=== PATIENT | male | born 1955 | race Caucasian/White ===

== ENCOUNTER → 2019-03-31 | Outpatient (CLI) | payer MEDICARE ==
[~2019-03-31] MED LIST: ACHD5005 PO; BENA40TA5 PO; DOCU-143 PO; HYDR-4196 PO; METO-352 PO; TRIA1TAB3 PO
--- NOTE | 2019-03-31 10:57 | Diagnostic Imaging Report ---
INDICATION: Pain. 2 views were obtained. FINDINGS: The alignment is normal. There are mild degenerative changes. There is particular involvement of the distal interphalangeal joints. There is no fracture or dislocation. Soft tissues grossly unremarkable. IMPRESSION: Degenerative changes particularly the DIP joints. Dictated by: Dictated on workstation # [id number]
== END ==
LOC: RAD 10:30
PROVIDERS: ATTEND Family Medicine
DX: M19.041 Primary osteoarthritis, right hand (principal)
CPT/HCPCS: 73120

== ENCOUNTER → 2019-07-09 | Outpatient (CLI) | payer MEDICARE | LOC: CARD 10:44 | PROVIDERS: ATTEND Nurse Practitioner Family | DX: I08.2 Rheumatic disorders of both aortic and tricuspid valves (principal); R01.1 Cardiac murmur, unspecified | CPT/HCPCS: 93306 ==

== ENCOUNTER → 2019-07-20 | Outpatient (CLI) | payer MEDICARE ==
--- NOTE | 2019-07-20 16:04 | Diagnostic Imaging Report ---
INDICATION: Fatigue TECHNIQUE: Grayscale sonographic images of the thyroid gland. CORRELATION STUDY: None FINDINGS: RIGHT LOBE: 3.0 x 1.7 x 1.1 cm. There is normal echotexture about the right lobe. LEFT LOBE: 3.8 x 1.5 x 1.4 cm. There is normal echotexture about the left lobe. Isthmus appears unremarkable. IMPRESSION: Unremarkable appearing thyroid ultrasound examination. (Normal gland size: 4-5 x 2 x 2 cm) Dictated by: Dictated on workstation # [id number]
== END ==
LOC: RAD 10:52
PROVIDERS: ATTEND Otolaryngology Otolaryngology/Facial Plastic Surgery
DX: R53.83 Other fatigue (principal)
CPT/HCPCS: 76536

== ENCOUNTER → 2019-10-28 | Outpatient (CLI) | payer MEDICARE ==
[~2019-10-28] VITALS: Ht 182 cm; Wt 79.0 kg
[~2019-10-28] MED LIST changes: +CATHETER FLUSH 10 ML SYR IV PRN; +REGADENOSON 0.4 MG/5 ML SYR (LEXISCAN) IV ONE
[2019-10-28 09:01] VITALS: BP 212/92
[2019-10-28 09:05] VITALS: BP 184/84
--- NOTE | 2019-10-28 14:37 | Cardiology Stress Test Report ---
Stress Test Report Date of Procedure/Referring: Date of Procedure: Oct 28, 2019 PCP Yoan Mclain MD Admitting Physician Sonia Redd MD Indications: Hypertension Baseline Heart Rate: 69 Baseline Blood Pressure: Blood Pressure Systolic: 184 Blood Pressure Diastolic: 84 Baseline EKG: Baseline EKG: NSR Summary: Patient received 0.4 mg Lexiscan for stress test, ECG, heart rate and blood pressure were monitored continuously. Resting and stress dose of radio tracer were injected, imaging was acquired and reviewed in short axis, horizontal long axis and vertical long axis views. Conclusion: 1. Patient tolerated Lexiscan well. 2. Mild decreased uptake at the mid to apical inferolateral wall probably due to diaphragmatic attenuation with no significant ischemia or infarction, SSS is 5 SDS 3. 3. Normal left ventricular size, mild hypokinesia at the apex, calculated ejection fraction 47 percent 4. TID 0.99 YOAN MCLAIN MD Oct 28, 2019 2:37 pm
== END ==
LOC: CARD 07:17
PROVIDERS: ATTEND Internal Medicine Cardiovascular Disease
DX: I35.0 Nonrheumatic aortic (valve) stenosis (principal); I11.9 Hypertensive heart disease without heart failure; Z72.0 Tobacco use
CPT/HCPCS: 78452; 93017

== ENCOUNTER → 2020-11-21 | Outpatient (CLI) | payer MEDICARE ==
[~2020-11-21] MED LIST changes: -CATHETER FLUSH 10 ML SYR IV PRN; -REGADENOSON 0.4 MG/5 ML SYR (LEXISCAN) IV ONE
== END ==
LOC: CARD 09:30
PROVIDERS: ATTEND Physician Assistant
DX: I25.10 Atherosclerotic heart disease of native coronary artery without angina pectoris (principal); I10 Essential (primary) hypertension
CPT/HCPCS: 93306

== ENCOUNTER → 2021-05-31 | Day surgery (SDC) | payer MEDICARE ==
[~2021-05-31] VITALS: Ht 182.9 cm; Wt 127.0 kg
[~2021-05-31] MED LIST changes: -BENA40TA5 PO; +BENA40TA84 PO; +LIDOCAINE 1% INJ 20 ML 20 ML VIAL ONE
[2021-05-31 09:59] VITALS: BP 158/74
--- NOTE | 2021-05-31 11:06 | Implantation of Loop Monitor ---
Implant of Loop Monitior IMPLANTATION OF LOOP MONITOR REPORT DATE OF PROCEDURE: 05/31/21 PREOP DIAGNOSIS: Paroxysmal atrial fibrillation POSTOP DIAGNOSIS: Paroxysmal atrial fibrillation PROCEDURE DETAILS: The patient is a 66 male with history of paroxysmal atrial fibrillation requiring long-term surveillance. Therefore implantable loop recorder was discussed and agreed with the patient. Informed consent was taken. All risks and complications were discussed at length. The patient was draped and prepped in the usual sterile fashion. Local anesthesia was lidocaine, which was given in the substernal area close to the 4th intercostal space. Loop monitor [employer] with serial number [id number] was implanted according to the protocol. Steri- Strips were placed at the end of the procedure. There were no complications and the patient tolerated the procedure well. ANESTHESIA: Local anesthesia with lidocaine. COMPLICATIONS: None CONTRAST/FLUOROSCOPY: None CONCLUSION: Successful implantation of loop monitor with no complication FINAL DIAGNOSIS: Paroxysmal atrial fibrillation Palpitation Hypertension YOAN CONNOLLY MD May 31, 2021 11:06
== END ==
LOC: CATH 09:30
PROVIDERS: ATTEND Internal Medicine Cardiovascular Disease
DX: I48.0 Paroxysmal atrial fibrillation (principal); I10 Essential (primary) hypertension; I35.0 Nonrheumatic aortic (valve) stenosis; I25.10 Atherosclerotic heart disease of native coronary artery without angina pectoris; J38.00 Paralysis of vocal cords and larynx, unspecified; E66.9 Obesity, unspecified; F17.210 Nicotine dependence, cigarettes, uncomplicated; Z68.38 Body mass index [BMI] 38.0-38.9, adult; Z79.82 Long term (current) use of aspirin; Z79.899 Other long term (current) drug therapy; Z79.891 Long term (current) use of opiate analgesic
CPT/HCPCS: 33285; C1764

== ENCOUNTER → 2021-06-28 | Day surgery (SDC) | payer MEDICARE ==
[~2021-06-28] MED LIST changes: -LIDOCAINE 1% INJ 20 ML 20 ML VIAL ONE; +NS IV 1000 ML 1,000 ML IV SCH
== END ==
LOC: CATH 06:54
PROVIDERS: ATTEND Internal Medicine Cardiovascular Disease
DX: I48.91 Unspecified atrial fibrillation (principal); Z53.8 Procedure and treatment not carried out for other reasons
CPT/HCPCS: 93005

== ENCOUNTER → 2021-07-18 | Outpatient (CLI) | payer MEDICARE ==
[~2021-07-18] MED LIST changes: -NS IV 1000 ML 1,000 ML IV SCH
--- NOTE | 2021-07-18 17:10 | Diagnostic Imaging Report ---
INDICATION: Calcification and numbness and tingling in legs and feet Noninvasive study performed On the right side, the ankle-brachial index was 1.22 for posterior tibial artery at the ankle and 1.17 for the dorsalis pedis at the ankle, in normal range. Index decreases to 0.7 at the digital level, it is not clear if this is technical. On the left side, ankle-brachial indices are diminished at the posterior tibial artery at 0.45, and at the dorsalis pedis of 0.84. Index was decreased to 0.33 at the digital level. Waveforms are diminished in the left digital level, left worse than right. IMPRESSION: Abnormal ankle-brachial indices on the left side, as above. Normal indices on the right side, except for diminished level at the posterior tibial artery which could be artifactual. Dictated by: Dictated on workstation # [id number]
--- NOTE | 2021-07-18 19:48 | Diagnostic Imaging Report ---
INDICATION: Bilateral lower extremity tingling and numbness. TECHNIQUE: Bilateral lower extremity arterial Doppler study performed in the routine fashion with color flow Doppler and waveform analysis. FINDINGS: On the right side, flow is multiphasic throughout, except for monophasic in the distal portion of the dorsalis pedis. There is no focal high velocity jet or occluded segment on the right side. On the left side, flow was multiphasic throughout except for monophasic in dorsalis pedis. IMPRESSION: Multiphasic flow is seen with no focal high velocity jet or occluded segment. There is diffuse atherosclerotic plaquing. Flow conversed to monophasic in the dorsalis pedis on both sides. Dictated by: Dictated on workstation # [id number]
== END ==
LOC: RAD 09:30
PROVIDERS: ATTEND Family Medicine
DX: I70.292 Other atherosclerosis of native arteries of extremities, left leg (principal)
CPT/HCPCS: 93922; 93925

== ENCOUNTER → 2021-10-31 | Outpatient (CLI) | payer MEDICARE ==
--- NOTE | 2021-10-31 12:07 | Diagnostic Imaging Report ---
PROCEDURE: US Thyroid. TECHNIQUE: Multiple real-time grayscale images were obtained of the thyroid in various projections. INDICATION: Globus sensation. Comparison with previous thyroid ultrasound of 07/20/2019. FINDINGS: Right lobe measures 5 x 2 x 1.5 cm. Left lobe measures 4.5 x 2.2 x 1.8 cm. Isthmus is 3 mm. Thyroid is homogeneous. No nodules are seen. No hypervascularity. IMPRESSION: Normal thyroid ultrasound. No appreciable change when compared with previous exam. Dictated by: Dictated on workstation # [id number]
== END ==
LOC: RAD 11:00
PROVIDERS: ATTEND Otolaryngology Otolaryngology/Facial Plastic Surgery
DX: F45.8 Other somatoform disorders (principal)
CPT/HCPCS: 76536

== ENCOUNTER → 2021-11-07 | Outpatient (CLI) | payer MEDICARE | LOC: CARD 08:30 | PROVIDERS: ATTEND Internal Medicine Cardiovascular Disease | DX: I08.0 Rheumatic disorders of both mitral and aortic valves (principal); I10 Essential (primary) hypertension; I48.0 Paroxysmal atrial fibrillation; E66.9 Obesity, unspecified | CPT/HCPCS: 93306 ==

== ENCOUNTER 2022-01-17 11:50 | Day surgery (SDC) | payer MEDICARE ==
[~2022-01-17] VITALS: Ht 182.9 cm; Wt 131.3 kg
[2022-01-17] VITALS (9 sets, daily range): BP systolic 115–171; BP diastolic 52–87
[2022-01-17] MEDS ORDERED: NS IV 1000 ML 1,000 ML ONE (12:13)
[2022-01-17] MEDS ORDERED: HEParin (CATH LAB) 2,000 ML IV ONE (12:13)
[2022-01-17] MEDS ORDERED: LIDOCAINE 1% INJ 20 ML VIAL ONE (12:13)
[2022-01-17] MEDS ORDERED: NS IV 1000 ML 1,000 ML IV SCH ×2 (12:15→14:15)
[2022-01-17 12:28] LABS: HEMATOCRIT 37 % (40-54); HEMOGLOBIN 11.9 g/dL (13.3-17.7); MEAN CORPUSCULAR HEMOGLOBIN 31 pg (25-34); MEAN CORPUSCULAR HGB CONC 32 g/dL (32-36); MEAN CORPUSCULAR VOLUME 95 fL (80-99); MEAN PLATELET VOLUME 9.7 fL (9.0-12.2); PLATELET COUNT 213 10^3/uL (130-400); WHITE BLOOD COUNT 9.8 10^3/uL (4.3-11.0)
[2022-01-17 12:33] LABS: BILIRUBIN,URINE NEGATIVE (NEGATIVE); CLARITY,URINE CLEAR; COLOR,URINE YELLOW; GLUCOSE, URINE (UA) NEGATIVE (NEGATIVE); KETONES,URINE NEGATIVE (NEGATIVE); LEUKOCYTE ESTERASE ,URINE 2+ (NEGATIVE); NITRITE,URINE NEGATIVE (NEGATIVE); PROTEIN,URINE NEGATIVE (NEGATIVE)
--- NOTE | 2022-01-17 12:47 | Diagnostic Imaging Report ---
INDICATION: Coronary artery disease. FINDINGS: A loop recorder device projects over the left chest. The heart size is upper limits. There is mild vascular congestion, but no joanna pulmonary edema. No effusion or pneumothorax. IMPRESSION: Upper limits heart size and venous caliber, but no pleural pathology, edema, or focal pneumonia. Dictated by: Dictated on workstation # [id number]
[2022-01-17 12:53] LABS: RBC,URINE 0-2 /HPF
[2022-01-17 12:54] LABS: BACTERIA,URINE NEGATIVE /HPF
[2022-01-17 12:55] LABS: ALBUMIN 4.4 GM/DL (3.2-4.5); BILIRUBIN,TOTAL 0.8 MG/DL (0.1-1.0); CALCIUM 9.7 MG/DL (8.5-10.1); CREATININE SERUM 1.07 MG/DL (0.60-1.30); INR 1.2 (0.8-1.4); POTASSIUM 4.4 MMOL/L (3.6-5.0); PROTHROMBIN TIME PATIENT 15.7 SEC (12.2-14.7); TOTAL PROTEIN 8.3 GM/DL (6.4-8.2)
[2022-01-17] MEDS ORDERED: ATOR20TA66 PO (12:59)
[2022-01-17] MEDS ORDERED: TURM500T PO (12:59)
[2022-01-17] MEDS ORDERED: LEVO50CA4 PO (12:59)
[2022-01-17] MEDS ORDERED: AMIO200T65 PO (12:59)
[2022-01-17] MEDS ORDERED: CHOL-34 PO (12:59)
[2022-01-17] MEDS ORDERED: UBID100C17 PO (12:59)
[2022-01-17] MEDS ORDERED: MTP100TCR PO (12:59)
[2022-01-17] MEDS ORDERED: MULT-1136 PO (12:59)
[2022-01-17] MEDS ORDERED: BENA40TA84 PO (12:59)
[2022-01-17] MEDS ORDERED: CYAN500011 PO (12:59)
[2022-01-17] MEDS ORDERED: RIVA20TA PO (12:59)
[2022-01-17] MEDS ORDERED: ASPI-1238 PO (12:59)
[2022-01-17] MEDS ORDERED: FOLI0.4T6 PO (12:59)
[2022-01-17] MEDS ORDERED: HYDR-3820 PO (12:59)
[2022-01-17] MEDS ORDERED: AMLO-251 PO (12:59)
[2022-01-17] MEDS ORDERED: TRIA1TAB3 PO (13:04)
[2022-01-17] MEDS ORDERED: LORA10TA7 PO (13:08)
[2022-01-17] MEDS ORDERED: MIDAZOLAM 5 MG/5 ML (VERSED) VIAL ONE (13:31)
[2022-01-17] MEDS ORDERED: fentaNYL INJ 100 MCG/2 ML AMP ONE (13:31)
[2022-01-17] MEDS ORDERED: VERAPAMIL 5 MG/2 ML (CALAN) VIAL IV ONE (13:31)
[2022-01-17] MEDS ORDERED: NITRO DRIP 25000 MCG/D5W 250 ML IV ONE (13:32)
[2022-01-17] MEDS ORDERED: HEParin 1000 UNIT/ML (10ML VIAL) FOR BOLUS ONE (13:32)
--- NOTE | 2022-01-17 13:37 | Cardiac Procedure Note-CS/ASA ---
Pre-Procedure Note Pre-Op Procedure Note Date of Available H&P: Jan 11, 2022 Date H&P Reviewed: Jan 17, 2022 Time H&P Reviewed: 13:37 History & Physical: H&P Reviewed, Patient Examed, No changes noted Pre-Operative Diagnosis: Conscious Sedation Pre-Proced Time 13:37 ASA Score 3 For ASA 3 and 4: Consider anesthesia and medical clearance. Also, for patients with a history of failed moderate sedation consider anesthesia. Airway Lungs Heart ASA score ASA 1: a normal healthy patient ASA 2: a patient with a mild systemic disease (mid diabetes, controlled hypertension, obesity ASA 3: a patient with a severe systemic disease that limits activity (angina, COPD, prior Myocardial infarction) ASA 4: a patient with an incapacitating disease that is a constant threat to life (CHF, renal failure) ASA 5: a moribund patient not expected to survive 24 hrs. (ruptured aneurysm) ASA 6: a declared brain- patient whose organs are being harvested. For emergent operations, add the letter E after the classification Mallampati Classification Grade 3 Sedation Plan Analgesia, Amnesia, Plan communicated to team members, Discussed options with patient/fam, Discussed risks with patient/fam The patient is an appropriate candidate to undergo the planned procedure, sedation, and anesthesia. The patient immediately re-assessed prior to indication. YOAN CONNOLLY MD Jan 17, 2022 13:37
--- NOTE | 2022-01-17 14:14 | Discharge Inst-Post CATH ---
Discharge Inst-CATH/EP Problems Reviewed?: Yes Post Cardiac Cath/EP D/C Inst Follow Up/Plan Appointment with Dr. Mclain's office in 2 to 4 weeks <b>CARDIAC CATH/EP PROCEDURE DISCHARGE INSTRUCTIONS</b> ACTIVITY * Go Home directly and rest. * Limit activity of the leg (or wrist if it was used) for 7 days including aer obics, swimming, jogging, bicycling, etc. * Restrict stair-climbing for 7 days if possible, if not, climb up with your non-cath leg, then bring together on the same step. * Avoid lifting, pushing, pulling or excessive movement of the affected extremi ty for 7 days. * Customary sexual activity may be resumed after 2 days-use caution not to use a position that strains or causes pain to the affected extremity. * No driving for 24 hours. * NO SMOKING. * Avoid straining for bowel movements for 7 days. * Gentle walking on level ground is allowed. * Returning to work will depend on the type of procedure and the results. Your doctor will discuss this with you. CALL YOUR DOCTOR FOR ANY OF THE FOLLOWING: *If bleeding from the puncture site occurs- Apply gentle pressure to site with clean cloth and call your doctor or EMS. * If a knot or lump forms under the skin, increases in size, or causes pain. * If bruising appears to be worsening or moving further down your leg instead of disappearing. * Temperature above 101 F. CARE OF YOUR GROIN INCISION; * Bruising or purple discoloration of the skin near the puncture site is common. * You may shower only, no bathtub bathing for 5 days. Be careful to avoid slipping as your leg may feel stiff. * If a closure device was used on your femoral artery, please see the attached guide regarding care of the device and your leg. * Leave dressing on FOR 24 hours. CARE OF YOUR WRIST INCISION; * Bruising or purple discoloration of the skin near the puncture site is common. * You may shower. * DO NOT submerge wrist. * Leave dressing on FOR 24 hours. YOAN MCLAIN MD Jan 17, 2022 14:14
--- NOTE | 2022-01-17 14:19 | Cardiac Cath Report ---
Cardiac Cath Report Physician (s)/Production Counter (s) Physician YOAN CONNOLLY MD Pre-Procedure Diagnosis Pre-Procedure Diagnosis: Aortic stenosis Post-Procedure Note Procedure Start Date: Jan 17, 2022 Name of Procedure: Coronary angiogram Aortic arch angiogram Findings/Procedure Note PROCEDURE NOTE: 66 years old gentleman with severe aortic stenosis, scheduled for aortic valve replacement. Cardiac catheterization was recommended. After explaining the procedure to the patient, all pros and cons were explained, all questions were answered. The patient signed the consent and then he was placed on the cardiac catheterization laboratory. Groin was prepped SL fashion local anesthesia was used. Sheath placed in the right radial artery, [place] catheter was advanced to the ascending aorta, I was unable to cross the aortic valve, engage the right and left coronary system, angiogram was done then the catheter was pulled back to the aortic arch and aortic arch angiogram was done. At the end of the procedure the sheath was removed. Vascular band was used FINDINGS: Hemodynamics LV did not cross the aortic valve Aorta 108/62 mean of 70 ANATOMY: Left Main is free of obstructive disease Left Anterior Descending slightly tortuous with mild disease nonobstructive d isease Left Circumflex has mild disease nonobstructive disease Right Coronary Artery has mild disease nonobstructive disease Aorta evaluation done with aortic arch angiogram showing normal aortic arch in size, no dissection or aneurysm, calcification at the origin of the brachiocephalic artery, no significant obstructive disease at the left subclavian and left carotid arteries. CONCLUSION: 1. Mild coronary artery disease nonobstructive disease 2. Normal aortic arch and mild calcification at the origin of the brachiocephalic artery. DISCUSSION AND RECOMMENDATION: Patient is referred for evaluation for aortic valve replacement Anesthesia Type: Conscious Sedation Estimated blood loss (mL): 15 ml Contrast Amount: 59 ml Total Radiation Dose: 771 mGy Post-Procedure Diagnosis Post-operative diagnosis: Aortic valve stenosis Coronary artery disease Hypertension Hyperlipidemia YOAN CONNOLLY MD Jan 17, 2022 14:19
== END 2022-01-17 17:18 | disposition home or self-care (01) ==
LOC: CATH 11:50 → SDC 14:56 → CATH 17:18
PROVIDERS: ATTEND Internal Medicine Cardiovascular Disease
DX: I25.10 Atherosclerotic heart disease of native coronary artery without angina pectoris (principal); I35.0 Nonrheumatic aortic (valve) stenosis; I10 Essential (primary) hypertension; E78.5 Hyperlipidemia, unspecified; Z79.899 Other long term (current) drug therapy; F17.210 Nicotine dependence, cigarettes, uncomplicated; I48.0 Paroxysmal atrial fibrillation; G47.30 Sleep apnea, unspecified; J38.01 Paralysis of vocal cords and larynx, unilateral; F10.20 Alcohol dependence, uncomplicated
CPT/HCPCS: 36221; 71045; 80053; 80061; 81000; 85027; 85610; 85730; 87081; 93005; 93459; C1769; C1894; 36415

== ENCOUNTER 2022-03-14 00:06 | Emergency (ER) | payer MEDICARE ==
[~2022-03-14 00:06] MED LIST changes: +AMIO200T65 PO; +AMLO-251 PO; +ASPI-1238 PO; +ATOR20TA66 PO; +CHOL-34 PO; +CYAN500011 PO; +FOLI0.4T6 PO; +HYDR-3820 PO; +LEVO50CA4 PO; +LORA10TA7 PO; +MTP100TCR PO; +MULT-1136 PO; +RIVA20TA PO; +TURM500T PO; +UBID100C17 PO
--- NOTE | 2022-03-14 00:18 | ED Cardiac General ---
History of Present Illness General Stated Complaint: AORTIC VALVE REPLACED 3 WKS AGO,HAVING IRREGULAR H History of Present Illness Date Seen by Provider: Mar 14, 2022 Time Seen by Provider: 00:18 Initial Comments 66-year-old male with PMH of aortic valve replacement 3 weeks ago on Xarelto/A. fib/HTN/hypothyroidism, is here with complaints of feeling an irregular heart rate which began today. Patient states that he feels occasional palpitations. Patient had his aortic valve replacement done at . Denies chest pain, SOB, abdominal pain, fever, cough, diaphoresis, headache, dizziness, neurological deficits. Allergies and Home Medications Allergies Coded Allergies: No Known Drug Allergies (Unverified , 08/04/15) Patient Home Medication List Home Medication List Reviewed: Yes Amiodarone HCl (Amiodarone HCl) 200 Mg Tablet, 400 MG PO DAILY, (Reported) Entered as Reported by: RUTHIE HESTER on 01/17/22 1259 Amlodipine Besylate (Amlodipine Besylate) 10 Mg Tablet, 10 MG PO DAILY, (Reported) Entered as Reported by: RUTHIE HESTER on 01/17/22 1259 Aspirin (Aspirin EC) 81 Mg Tablet.dr, 81 MG PO DAILY, (Reported) Entered as Reported by: RUTHIE HESTER on 01/17/22 1259 Atorvastatin Calcium (Atorvastatin Calcium) 20 Mg Tablet, 20 MG PO HS, (Reported) Entered as Reported by: RUTHIE HESTER on 01/17/22 1259 Benazepril HCl (Benazepril HCl) 40 Mg Tab, 40 MG PO DAILY, (Reported) Entered as Reported by: RUTHIE HESTER on 01/17/22 1259 Cholecalciferol (Vitamin D3) (Vitamin D3) 25 Mcg (1000 Unit) Tablet, 25 MCG PO DAILY, (Reported) Entered as Reported by: RUTHIE HESTER on 01/17/22 1259 Cyanocobalamin (Vitamin B-12) (Vitamin B-12) 5,000 Mcg Capsule, 5,000 MCG PO DAILY, (Reported) Entered as Reported by: RUTHIE HESTER on 01/17/22 1259 Folic Acid (Folic Acid) 0.4 Mg Tablet, 0.4 MG PO HS, (Reported) Entered as Reported by: RUTHIE HESTER on 01/17/22 1259 Hydrocodone/Acetaminophen (Hydrocodone-Acetamin 10-325 mg) 10 Mg-325 Mg Tablet, 0.5-1 TAB PO BID PRN for PAIN-MODERATE (5-7), (Reported) Entered as Reported by: RUTHIE HESTER on 01/17/22 125 Levothyroxine Sodium (Levothyroxine) 50 Mcg Capsule, 50 MCG PO DAILY, (Reported) Entered as Reported by: RUTHIE HESTER on 01/17/22 125 Loratadine (Loratadine) 10 Mg Tablet, 10 MG PO DAILY, (Reported) Entered as Reported by: RUTHIE HESTER on 01/17/22 1308 Metoprolol Succinate (Metoprolol Succinate) 100 Mg Tab.er.24h, 50 MG PO HS, (Reported) Entered as Reported by: RUTHIE HESTER on 01/17/22 125 Multivitamin (Multivitamin) 1 Each Tablet, 1 EACH PO HS, (Reported) Entered as Reported by: RUTHIE HESTER on 01/17/22 125 Rivaroxaban (Xarelto) 20 Mg Tablet, 20 MG PO HS, (Reported) Entered as Reported by: RUTHIE HESTER on 01/17/22 125 Triamterene/Hydrochlorothiazid (Triamterene-Hctz 37.5-25 mg Tb) 37.5 Mg-25 Mg Tablet, 1 EACH PO DAILY, (Reported) Entered as Reported by: RUTHIE HESTER on 01/17/22 130 Turmeric Root Extract (Turmeric) 500 Mg Tablet, 500 MG PO DAILY, (Reported) Entered as Reported by: RUTHIE HESTER on 01/17/22 125 Ubidecarenone (Coq-10) 100 Mg Capsule, 100 MG PO HS, (Reported) Entered as Reported by: RUTHIE HESTER on 01/17/22 125 Review of Systems Review of Systems Constitutional: no symptoms reported EENTM: No Symptoms Reported Respiratory: No Symptoms Reported Cardiovascular: Irregular Heart Rate, Palpitations Gastrointestinal: No Symptoms Reported Genitourinary: No Symptoms Reported Musculoskeletal: no symptoms reported Skin: no symptoms reported Psychiatric/Neurological: No Symptoms Reported Endocrine: No Symptoms Reported Hematologic/Lymphatic: No Symptoms Reported Past Czqzuys-Gvhruy-Lizseh Hx Past Medical History Eye Surgery, Tonsillectomy Sleep Apnea Currently Using CPAP: Yes Atrial Fibrillation, High Cholesterol, Hypertension HIV/AIDS: No Degenerate Disk Disease, Arthritis, Chronic Back Pain Loss of Vision: Bilateral Hearing Impairment: Denies Adverse Reaction/Blood Tranf: No Physical Exam Vital Signs Vital Signs - First Documented 03/14/22 00:15 Temp 36.5 Pulse 73 Resp 18 Pulse Ox 99 Capillary Refill : Height, Weight, BMI Height: 6'0.00" Weight: 267lbs. oz. 121.340421dm; 39.24 BMI Method: General Appearance: No Apparent Distress, WD/WN HEENT: PERRL/EOMI Neck: Full Range of Motion Respiratory: Chest Non Tender, Lungs Clear Cardiovascular: No Edema, Systolic Murmur, Irregularly Irregular Gastrointestinal: Normal Bowel Sounds, Non Tender, Soft Extremity: Normal Range of Motion Neurologic/Psychiatric: Alert, Oriented x3 Skin: Normal Color, Warm/Dry Progress/Results/Core Measures Results/Orders Lab Results Laboratory Tests Test 03/14/22 00:49 03/14/22 01:55 Range/Units White Blood Count 8.6 4.3-11.0 10^3/uL Red Blood Count 3.75 L 4.30-5.52 10^6/uL Hemoglobin 11.5 L 13.3-17.7 g/dL Hematocrit 33 L 40-54 % Mean Corpuscular Volume 88 80-99 fL Mean Corpuscular Hemoglobin 31 25-34 pg Mean Corpuscular Hemoglobin Concent 35 32-36 g/dL Red Cell Distribution Width 14.5 10.0-14.5 % Platelet Count 200 130-400 10^3/uL Mean Platelet Volume 9.4 9.0-12.2 fL Immature Granulocyte % (Auto) 0 % Neutrophils (%) (Auto) 47 42-75 % Lymphocytes (%) (Auto) 42 12-44 % Monocytes (%) (Auto) 8 0-12 % Eosinophils (%) (Auto) 2 0-10 % Basophils (%) (Auto) 1 0-10 % Neutrophils # (Auto) 4.1 1.8-7.8 10^3/uL Lymphocytes # (Auto) 3.6 1.0-4.0 10^3/uL Monocytes # (Auto) 0.7 0.0-1.0 10^3/uL Eosinophils # (Auto) 0.1 0.0-0.3 10^3/uL Basophils # (Auto) 0.1 0.0-0.1 10^3/uL Immature Granulocyte # (Auto) 0.0 0.0-0.1 10^3/uL Prothrombin Time 21.9 H 12.2-14.7 SEC INR Comment 1.9 H 0.8-1.4 Activated Partial Thromboplast Time 58 H 24-35 SEC D-Dimer 0.81 H 0.00-0.49 UG/ML Sodium Level 127 L 135-145 MMOL/L Potassium Level 3.6 3.6-5.0 MMOL/L Chloride Level 92 L 98-107 MMOL/L Carbon Dioxide Level 21 21-32 MMOL/L Anion Gap 14 5-14 MMOL/L Blood Urea Nitrogen 12 7-18 MG/DL Creatinine 0.92 0.60-1.30 MG/DL Estimat Glomerular Filtration Rate 91 BUN/Creatinine Ratio 13 Glucose Level 151 H 70-105 MG/DL Calcium Level 9.2 8.5-10.1 MG/DL Corrected Calcium 9.0 8.5-10.1 MG/DL Magnesium Level 1.7 1.6-2.4 MG/DL Total Bilirubin 0.6 0.1-1.0 MG/DL Aspartate Amino Transf (AST/SGOT) 43 H 5-34 U/L Alanine Aminotransferase (ALT/SGPT) 32 0-55 U/L Alkaline Phosphatase 78 40-136 U/L Troponin I < 0.028 <0.028 NG/ML B-Type Natriuretic Peptide 62.7 <100.0 PG/ML Total Protein 8.1 6.4-8.2 GM/DL Albumin 4.2 3.2-4.5 GM/DL Thyroid Stimulating Hormone (TSH) 3.84 0.35-4.94 UIU/ML Urine Color YELLOW Urine Clarity CLEAR Urine pH 6.0 5-9 Urine Specific Ora 1.015 L 1.016-1.022 Urine Protein NEGATIVE NEGATIVE Urine Glucose (UA) NEGATIVE NEGATIVE Urine Ketones NEGATIVE NEGATIVE Urine Nitrite NEGATIVE NEGATIVE Urine Bilirubin NEGATIVE NEGATIVE Urine Urobilinogen 0.2 < = 1.0 MG/DL Urine Leukocyte Esterase NEGATIVE NEGATIVE Urine RBC (Auto) NEGATIVE NEGATIVE Urine RBC NONE /HPF Urine WBC NONE /HPF Urine Crystals NONE /LPF Urine Bacteria NEGATIVE /HPF Urine Casts NONE /LPF Urine Mucus NEGATIVE /LPF Urine Culture Indicated NO Urine Opiates Screen NEGATIVE NEGATIVE Urine Oxycodone Screen NEGATIVE NEGATIVE Urine Methadone Screen NEGATIVE NEGATIVE Urine Propoxyphene Screen NEGATIVE NEGATIVE Urine Barbiturates Screen NEGATIVE NEGATIVE Ur Tricyclic Antidepressants Screen NEGATIVE NEGATIVE Urine Phencyclidine Screen NEGATIVE NEGATIVE Urine Amphetamines Screen NEGATIVE NEGATIVE Urine Methamphetamines Screen NEGATIVE NEGATIVE Urine Benzodiazepines Screen NEGATIVE NEGATIVE Urine Cocaine Screen NEGATIVE NEGATIVE Urine Cannabinoids Screen NEGATIVE NEGATIVE My Orders Orders - TESHA CORDERO MD [facility] [place] (03/14/22 00:20) Cbc With Automated Diff (03/14/22 00:20) Comprehensive Metabolic Panel (03/14/22:20) Fibrin Degradation Products (03/14/22 00:20) Drug Screen Stat (Urine) (03/14/22 00:20) Magnesium (03/14/22 00:20) Thyroid Stimulating Hormone (03/14/22 00:20) Ua Culture If Indicated (03/14/22:20) Troponin I [place] (03/14/22 00:20) Chest 1 View, Ap/Pa Only (03/14/22 00:20) Ekg Tracing (03/14/22 00:20) Protime With Inr (03/14/22 00:20) Partial Thromboplastin Time (03/14/22 00:20) Monitor-Rhythm Ecg Trace Only (03/14/22 00:20) Ed Iv/Invasive Line Start (03/14/22 00:20) Aspirin Chewable Tablet (Baby Aspirin Ch (03/14/22 00:30) Aspirin Chewable Tablet (Baby Aspirin Ch (03/14/22 01:15) Ct Angio Chest W (03/14/22 01:27) Iohexol Injection (Omnipaque 350 Mg/Ml 1 (03/14/22 02:00) Received Contrast (Hold Metformin- Contr (03/14/22 02:00) Ns (Ivpb) (Sodium Chloride 0.9% Ivpb Bag (03/14/22 02:00) Ed Iv/Invasive Line Start (03/14/22 02:48) Ns Iv 1000 Ml (Sodium Chloride 0.9%) (03/14/22 03:00) Medications Given in ED Current Medications Medications Dose Ordered Sig/Barbara Route Start Time Stop Time Status Last Admin Dose Admin Aspirin 324 mg ONCE ONCE PO 03/14/22 00:30 03/14/22 01:10 DC 03/14/22 00:43 324 MG Iohexol 100 ml ONCE ONCE IV 03/14/22 02:00 03/14/22 02:08 DC 03/14/22 02:02 88 ML Sodium Chloride 100 ml ONCE ONCE IV 03/14/22 02:00 03/14/22 02:08 DC 03/14/22 02:02 70 ML Vital Signs/I&O 03/14/22 00:15 Temp 36.5 Pulse 73 Resp 18 B/P (MAP) Pulse Ox 99 Progress Progress Note : Progress Note 1. PALPITATIONS/ S/P ARTERIAL VALVE REPLACEMENT ( 3 weeks/ Hyponatremia: - CXR: - EKG/ Troponin non-ischemic - CBC/ CMP: unremarkable except s. Na is 127. This may be triggering the irregular heart rate. Pt has been put on Lasix for 7 to 10 days and this could be a possible trigger for the hyponatremia. - TSH normal - UA/ UDS - D-dimer is 0.81 - CTA CHEST: no PE - discussed with optical engineer , Dr Mclain on the phone. Will discharge and have pt follow-up in cardiology clinic. -The patient was seen in the ED, and treated appropriately to presentation at a specific point in time. Patient is informed that there is a possibility that disease and illness can evolve and change in acuity rapidly or slowly after patient is discharged from the ER. Precautionary advice given to the patient for immediate return to ER if symptoms worsen or do not resolve, and to seek emergency care sooner rather than later. Pt also advised on the importance of P CP follow up and compliance with management and follow up plan with PCP and/or specialist, as this is part of the management plan. Pt verbally expressed understanding. Departure Impression Primary Impression: Palpitations Additional Impression: Hyponatremia Disposition: 01 HOME, SELF-CARE Condition: Stable Departure-Patient Inst. Referrals: TRICIA ALLEN MD (PCP/Family) Primary Care Physician Patient Instructions: Palpitations ED, Hyponatremia Add. Discharge Instructions: Follow-up in cardiology clinic within the next 3 to 5 days. TESHA CORDERO MD Mar 14, 2022 00:18
[2022-03-14] MEDS ORDERED: ASPIRIN 81 MG CHEW (CHILDREN'S ASA) PO ONE ×2 (00:30→01:15)
[2022-03-14 00:57] LABS: BASOPHILS # (AUTO) 0.1 10^3/uL (0.0-0.1); BASOPHILS % (AUTO) 1 % (0-10); EOSINOPHILS # (AUTO) 0.1 10^3/uL (0.0-0.3); EOSINOPHILS % (AUTO) 2 % (0-10); HEMATOCRIT 33 % (40-54); HEMOGLOBIN 11.5 g/dL (13.3-17.7); LYMPHOCYTES # (AUTO) 3.6 10^3/uL (1.0-4.0); LYMPHOCYTES % (AUTO) 42 % (12-44); MEAN CORPUSCULAR HEMOGLOBIN 31 pg (25-34); MEAN CORPUSCULAR HGB CONC 35 g/dL (32-36); MEAN CORPUSCULAR VOLUME 88 fL (80-99); MEAN PLATELET VOLUME 9.4 fL (9.0-12.2); MONOCYTES # (AUTO) 0.7 10^3/uL (0.0-1.0); MONOCYTES % (AUTO) 8 % (0-12); NEUTROPHILS # (AUTO) 4.1 10^3/uL (1.8-7.8); NEUTROPHILS % (AUTO) 47 % (42-75); PLATELET COUNT 200 10^3/uL (130-400); WHITE BLOOD COUNT 8.6 10^3/uL (4.3-11.0)
[2022-03-14 01:13] LABS: ALBUMIN 4.2 GM/DL (3.2-4.5)
[2022-03-14 01:14] LABS: CHLORIDE 92 MMOL/L (98-107); POTASSIUM 3.6 MMOL/L (3.6-5.0); SODIUM 127 MMOL/L (135-145)
[2022-03-14 01:15] LABS: CALCIUM 9.2 MG/DL (8.5-10.1); INR 1.9 (0.8-1.4); PROTHROMBIN TIME PATIENT 21.9 SEC (12.2-14.7)
[2022-03-14 01:16] LABS: GLUCOSE 151 MG/DL (70-105); TOTAL PROTEIN 8.1 GM/DL (6.4-8.2)
[2022-03-14 01:17] LABS: CARBON DIOXIDE 21 MMOL/L (21-32)
[2022-03-14 01:18] LABS: BILIRUBIN,TOTAL 0.6 MG/DL (0.1-1.0)
[2022-03-14 01:19] LABS: ALKALINE PHOSPHATASE 78 U/L (40-136)
[2022-03-14 01:20] LABS: CREATININE SERUM 0.92 MG/DL (0.60-1.30); GFR ESTIMATED 91
[2022-03-14 01:21] LABS: BUN/CREATININE RATIO 13
[2022-03-14 01:22] LABS: ALANINE AMINOTRANSFERASE 32 U/L (0-55); MAGNESIUM 1.7 MG/DL (1.6-2.4)
[2022-03-14] MEDS ORDERED: NS 100 ML (IVPB) BAG IV ONE (02:00)
[2022-03-14] MEDS ORDERED: IOHEXOL 350 MG/ML 100 ML (OMNIPAQUE 350) VIAL IV ONE (02:00)
[2022-03-14] MEDS ORDERED: HOLD METFORMIN - RECEIVED CONTRAST 20 ML VIAL IV SCH (02:00)
[2022-03-14 02:01] LABS: BILIRUBIN,URINE NEGATIVE (NEGATIVE); CLARITY,URINE CLEAR; COLOR,URINE YELLOW; GLUCOSE, URINE (UA) NEGATIVE (NEGATIVE); KETONES,URINE NEGATIVE (NEGATIVE); LEUKOCYTE ESTERASE ,URINE NEGATIVE (NEGATIVE); NITRITE,URINE NEGATIVE (NEGATIVE); PROTEIN,URINE NEGATIVE (NEGATIVE)
[2022-03-14 02:16] LABS: AMPHETAMINE SCREEN, URINE NEGATIVE (NEGATIVE); BACTERIA,URINE NEGATIVE /HPF; BARBITURATE SCREEN URINE NEGATIVE (NEGATIVE); BENZODIAZEPINES SCREEN URINE NEGATIVE (NEGATIVE); CANNABINOID SCREEN, URINE NEGATIVE (NEGATIVE); COCAINE SCREEN URINE NEGATIVE (NEGATIVE); METHADONE STAT NEGATIVE (NEGATIVE); OPIATE SCREEN URINE NEGATIVE (NEGATIVE); OXYCODONE STAT NEGATIVE (NEGATIVE); PROPOXYPHENE STAT NEGATIVE (NEGATIVE); TRICYCLIC ANTIDEPRESSANTS SCRE NEGATIVE (NEGATIVE)
[2022-03-14] MEDS ORDERED: NS IV 1000 ML 1,000 ML IV SCH (03:00)
[2022-03-14 03:52] VITALS: BP 169/74
--- NOTE | 2022-03-14 07:30 | Diagnostic Imaging Report ---
PROCEDURE: CT angiography of the chest with contrast. TECHNIQUE: Multiple contiguous axial images were obtained through the chest after uneventful bolus administration of intravenous contrast. 3D reconstructed CTA MIP acquisitions were also performed. Auto Exposure Controls were utilized during the CT exam to meet ALARA standards for radiation dose reduction. INDICATION: Chest pain, pulmonary embolus COMPARISON: None available. FINDINGS: No significant adenopathy within the chest. No aneurysmal dilatation of thoracic aorta. Prosthetic aortic valve is present. The heart is at the upper limits of normal in size. No significant pericardial effusion. No pleural effusion. No pneumothorax. The lungs are clear. No significant filling defect within the central or segmental pulmonary arteries. Subsegmental pulmonary arteries are difficult to evaluate secondary to respiratory motion. The liver is enlarged, particularly the left hepatic lobe. Visualized upper abdomen is otherwise unremarkable. Scattered osseous degenerative changes without acute osseous abnormality. IMPRESSION: No significant pulmonary embolus within the limits of the examination. Borderline cardiomegaly without pleural effusion. Hepatomegaly, particularly enlargement of the left hepatic lobe. Agree with preliminary interpretation. Dictated by: Dictated on workstation # [id number]
--- NOTE | 2022-03-14 08:12 | Diagnostic Imaging Report ---
INDICATION: Chest pain COMPARISON: 01/17/2022 FINDINGS: The heart is enlarged. There is mild vascular congestion. No focal consolidation and no joanna edema. No pleural fluid. IMPRESSION: Slight increased heart size and venous caliber but no joanna edema, pleural fluid or pneumonia. Dictated by: Dictated on workstation # [id number]
== END 2022-03-14 03:58 | disposition home or self-care (01) ==
LOC: EDUNIT# 00:06 → ER 00:09
DX: E87.1 Hypo-osmolality and hyponatremia (principal); R00.2 Palpitations; G47.30 Sleep apnea, unspecified; I48.91 Unspecified atrial fibrillation; Z95.4 Presence of other heart-valve replacement; Z99.89 Dependence on other enabling machines and devices; Z79.01 Long term (current) use of anticoagulants
CPT/HCPCS: 36415; 71045; 71275; 80053; 80306; 81000; 83735; 83880; 84443; 84484; 85025; 85379; 85610; 85730; 93005; 93041

== ENCOUNTER → 2022-03-21 | Outpatient (CLI) | payer MEDICARE ==
--- NOTE | 2022-03-21 17:37 | Diagnostic Imaging Report ---
HISTORY: Low back pain and bilateral hip pain. TECHNIQUE: Frontal view of the pelvis. Frontal and lateral views of the bilateral hips. COMPARISON: None FINDINGS: There are severe degenerative changes in the right hip and moderate degenerative changes in the left hip. There are mild degenerative changes in the bilateral hip joints. No acute fracture is seen. There is calcific atherosclerosis. No osteonecrosis or articular surface collapse is seen. IMPRESSION:. 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 Dictated by: Dictated on workstation # [id number]
--- NOTE | 2022-03-21 18:06 | Diagnostic Imaging Report ---
INDICATION: Back pain AP and lateral views of the lumbar spine obtained. Lumbar vertebrae are normal in alignment. There is some mild loss of height of L1 of uncertain age. There is diffuse osteophyte formation throughout all levels with disc space narrowing most prominent at L4-L5 and L5-S1. There is diffuse facet degenerative change. IMPRESSION: Diffuse degenerative changes in the lumbar spine as described above. There is mild loss of height of L1 which is of uncertain age. Dictated by: Dictated on workstation # [id number]
== END ==
LOC: RAD 11:56
PROVIDERS: ATTEND Nurse Practitioner Family
DX: M16.0 Bilateral primary osteoarthritis of hip (principal); M47.816 Spondylosis without myelopathy or radiculopathy, lumbar region; M51.36 Other intervertebral disc degeneration, lumbar region; M51.37 Other intervertebral disc degeneration, lumbosacral region
CPT/HCPCS: 72100; 73523

== ENCOUNTER 2022-03-23 10:14 | Outpatient (RCR) | payer MEDICARE | END 2022-03-26 | disposition home or self-care (01) | LOC: CR 10:14 | PROVIDERS: ATTEND Surgery | DX: Z29.8 Encounter for other specified prophylactic measures (principal); I35.0 Nonrheumatic aortic (valve) stenosis | CPT/HCPCS: 93798 ==

== ENCOUNTER → 2022-04-25 | Outpatient (RCR) | payer MEDICARE | END | disposition home or self-care (01) | LOC: CR 03-28 06:36 | PROVIDERS: ATTEND Surgery | DX: Z29.8 Encounter for other specified prophylactic measures (principal); I35.0 Nonrheumatic aortic (valve) stenosis | CPT/HCPCS: 93798 ==

== ENCOUNTER 2022-05-16 09:57 | Outpatient (RCR) | payer MEDICARE | END 2022-05-26 | disposition home or self-care (01) | LOC: CR 09:57 | PROVIDERS: ATTEND Surgery | DX: Z29.8 Encounter for other specified prophylactic measures (principal); I35.0 Nonrheumatic aortic (valve) stenosis | CPT/HCPCS: 93798 ==

== ENCOUNTER 2022-06-15 09:55 | Outpatient (RCR) | payer MEDICARE | END 2022-06-26 | disposition home or self-care (01) | LOC: CR 09:55 | PROVIDERS: ATTEND Surgery | DX: Z29.8 Encounter for other specified prophylactic measures (principal); I35.0 Nonrheumatic aortic (valve) stenosis | CPT/HCPCS: 93798 ==

== ENCOUNTER → 2022-11-16 | Outpatient (CLI) | payer MEDICARE ==
--- NOTE | 2022-11-16 14:46 | Diagnostic Imaging Report ---
EXAMINATION: Chest, two views. HISTORY: Preoperative evaluation. COMPARISON: 03/14/2022. FINDINGS: Heart size and pulmonary vasculature are normal. There are mild interstitial opacities in the lower lungs. No pleural effusion or pneumothorax. Degenerative changes of the thoracic spine. Osseous structures are otherwise intact. IMPRESSION: 1. Mild interstitial opacities within the lower lungs, which could be seen with atelectasis, edema, or pneumonia in the appropriate clinical setting. Dictated by: Dictated on workstation # [id number]
== END ==
LOC: CARD 11:55
PROVIDERS: ATTEND Orthopaedic Surgery
DX: Z01.811 Encounter for preprocedural respiratory examination (principal); M16.0 Bilateral primary osteoarthritis of hip; J98.11 Atelectasis; R60.0 Localized edema; J18.9 Pneumonia, unspecified organism; R91.8 Other nonspecific abnormal finding of lung field
CPT/HCPCS: 71046; 93005

== ENCOUNTER → 2023-04-03 | Outpatient (CLI) | payer MEDICARE ==
--- NOTE | 2023-04-03 14:40 | Diagnostic Imaging Report ---
EXAMINATION: Chest 2 view HISTORY: Acute bronchitis COMPARISON: 11/16/2022 FINDINGS: The lungs are clear without edema or pneumonia. No pleural effusion or pneumothorax. Heart size is normal. There is a prosthetic aortic valve. Loop recorder is present. IMPRESSION: 1. Clear lungs. Dictated by: Dictated on workstation # [id number]
== END ==
LOC: RAD 12:03
PROVIDERS: ATTEND Physician Assistant
DX: J20.9 Acute bronchitis, unspecified (principal); G89.4 Chronic pain syndrome
CPT/HCPCS: 71046

== ENCOUNTER → 2023-05-01 | Outpatient (CLI) | payer MEDICARE ==
[2023-05-01 08:31] LABS: BASOPHILS % (AUTO) 0 % (0-10); EOSINOPHILS % (AUTO) 0 % (0-10); HEMATOCRIT 37 % (40-54); HEMOGLOBIN 12.8 g/dL (13.3-17.7); LYMPHOCYTES # (AUTO) 3.9 10^3/uL (1.0-4.0); LYMPHOCYTES % (AUTO) 43 % (12-44); MEAN CORPUSCULAR HEMOGLOBIN 33 pg (25-34); MEAN CORPUSCULAR HGB CONC 34 g/dL (32-36); MEAN CORPUSCULAR VOLUME 95 fL (80-99); MEAN PLATELET VOLUME 8.9 fL (9.0-12.2); MONOCYTES # (AUTO) 0.7 10^3/uL (0.0-1.0); MONOCYTES % (AUTO) 8 % (0-12); NEUTROPHILS # (AUTO) 4.4 10^3/uL (1.8-7.8); NEUTROPHILS % (AUTO) 49 % (42-75); PLATELET COUNT 139 10^3/uL (130-400); WHITE BLOOD COUNT 9.1 10^3/uL (4.3-11.0)
[2023-05-01 08:45] LABS: ALBUMIN 4.1 GM/DL (3.2-4.5); POTASSIUM 4.2 MMOL/L (3.6-5.0)
[2023-05-01 08:46] LABS: CALCIUM 9.5 MG/DL (8.5-10.1)
[2023-05-01 08:47] LABS: TOTAL PROTEIN 7.7 GM/DL (6.4-8.2)
[2023-05-01 08:49] LABS: BILIRUBIN,TOTAL 0.6 MG/DL (0.1-1.0)
[2023-05-01 08:51] LABS: CREATININE SERUM 0.88 MG/DL (0.60-1.30)
== END ==
LOC: LAB 08:21
PROVIDERS: ATTEND Physician Assistant
DX: G89.4 Chronic pain syndrome (principal); I48.0 Paroxysmal atrial fibrillation; E03.9 Hypothyroidism, unspecified; E78.2 Mixed hyperlipidemia
CPT/HCPCS: 36415; 80053; 80061; 84443; 85025